=== PATIENT | female | born 1980 | race Two or more races ===

== ENCOUNTER 2017-03-26 07:42 | Emergency (ER) | payer OTHER ==
[2017-03-26 07:48] VITALS: BP 120/63; PULSE 88; TEMP 98.4; BMI 22.3
[2017-03-26] MEDS ORDERED: ALBUTEROL SO4 2.5/IPRATROPIUM 0.5 INH SOL 3 ML VIAL.NEB. NEB ONE ×2 (08:21→08:25)
[2017-03-26] MEDS ORDERED: predniSONE 20 MG TABLET (UD) PO ONE (08:21)
[2017-03-26] MEDS ORDERED: predniSONE 20 MG TABLET (UD) ONE (08:25)
--- NOTE | 2017-03-26 08:30 | PDOC ---
History of Present Illness - General Chief Complaint: Cold Symptoms Stated Complaint: COUGH, ABD PAIN Time Seen by Provider: 03/26/17 08:12 History Source: Patient Exam Limitations: No Limitations - History of Present Illness Initial Comments: 03/26/17 08:25 CC 2 weeks of cough and congestion Timing/Duration: reports: changing over time Severity: reports: mild Modifying Factors: improves with: activity Associated Symptoms: reports: cough, wheezing. denies: dizziness, fever/chills , headache, shortness of breath Past History - Past Medical History Allergies/Adverse Reactions: Allergies Allergy/AdvReac Type Severity Reaction Status Date / Time No Known Allergies Allergy Verified 03/26/17 07:44 Home Medications: Ambulatory Orders NK [No Known Home Medication] 03/26/17 Thyroid Disease: Yes (hypo) - Psycho/Social/Smoking Cessation Hx Anxiety: No Suicidal Ideation: No Smoking History: Current every day smoker Have you smoked in the past 12 months: Yes Number of Cigarettes Smoked Daily: 4 Information on smoking cessation initiated: Yes 'Breaking Loose' booklet given: 03/26/17 Hx Alcohol Use: No Drug/Substance Use Hx: No Substance Use Type: Alcohol Review of Systems - Review of Systems Constitutional: No: Chills, Fever, Malaise HEENTM: Yes: Nose Congestion. No: Ocular Prothesis, Hearing Loss Respiratory: Yes: Cough, Wheezing Cardiac (ROS): No: Symptoms Reported *Physical Exam - Vital Signs Last Vital Signs Temp Pulse Resp BP Pulse Ox 98.4 F 88 18 120/63 100 03/26/17 07:45 03/26/17 07:45 03/26/17 07:45 03/26/17 07:45 03/26/17 07:45 - Physical Exam General Appearance: No: Appropriately Dressed HEENT: positive: Nasal Congestion, Rhinorrhea. negative: TMs Normal Neck: positive: Supple. negative: Tender, Rigid Respiratory/Chest: positive: Lungs Clear, Normal Breath Sounds. negative: Accessory Muscle Use, Labored Respiration Cardiovascular: positive: Regular Rhythm, Regular Rate. negative: Murmur Medical Decision Making - Medical Decision Making 03/26/17 08:26 will start prednisone x 5 days for new wheezing; will give dual neb in ED for chest tightness; feeeling better *DC/Admit/Observation/Transfer Diagnosis at time of Disposition: Bronchitis, acute, with bronchospasm - Discharge Dispostion Disposition: HOME Condition at time of disposition: Stable Admit: No - Patient Instructions Additional Instructions: see local MD next week if no better; rest at home - Post Discharge Activity Work/School Note: Back to Work
== END 2017-03-26 08:59 | disposition home or self-care (01) ==
LOC: JERFT 07:42 → JER 07:42 → JERFT 08:59
PROC: 3E0F7GC Introduction of Other Therapeutic Substance into Respiratory Tract, Via Natural or Artificial Opening (ICD-10-PCS; principal; 2017-03-26)
DX: J20.9 Acute bronchitis, unspecified (principal); E03.9 Hypothyroidism, unspecified
CPT/HCPCS: 94640; 99281-25

== ENCOUNTER 2017-09-14 11:08 | Emergency (ER) | payer OTHER ==
[2017-09-14 11:21] VITALS: BMI 25.5
[2017-09-14] MEDS ORDERED: ASPIRIN 81 MG CHEWABLE TABLETS PO ONE (11:40)
[2017-09-14] MEDS ORDERED: morphine CARPU-JECT 2 MG/1 ML DISP.SYRIN IVPUSH ONE (11:40)
[2017-09-14] MEDS ORDERED: ASPIRIN 81 MG CHEWABLE TABLETS ONE (11:47)
[2017-09-14] MEDS ORDERED: morphine CARPU-JECT 8 MG/1 ML DISP.SYRIN ONE (11:47)
[2017-09-14 11:57] LABS: BASOPHIL 0.8 % (0-2.0); EOSINOPHIL 3.2 % (0-4.5); MCHC 34.7 g/dl (32.0-36.0); MEAN CELL VOLUME 92.3 fl (80-96); MEAN PLT VOLUME 7.6 fl (7.5-11.1); NEUTROPHILS 58.5 % (42.8-82.8); PLATELET COUNT 296 K/MM3 (134-434); RDW 12.8 % (11.6-15.6); WHITE BLOOD COUNT 4.4 K/mm3 (4.0-10.0)
[2017-09-14] MEDS ORDERED: ALBUTEROL SO4 2.5/IPRATROPIUM 0.5 INH SOL 3 ML VIAL.NEB. NEB ONE ×2 (12:25→12:34)
[2017-09-14 12:29] LABS: ANION GAP 6 (8-16); CALCIUM 8.3 mg/dL (8.5-10.1); CO2 28 mmol/L (21-32); CREATININE 0.6 mg/dL (0.55-1.02); GLUCOSE,RANDOM 78 mg/dL (74-106)
[2017-09-14 12:30] LABS: ALBUMIN 4.5 g/dl (3.4-5.0); ANION GAP 6 (8-16); BILIRUBIN,TOTAL 0.8 mg/dL (0.2-1.0); CO2 28 mmol/L (21-32); CREATININE 0.5 mg/dL (0.55-1.02); GLUCOSE,RANDOM 76 mg/dL (74-106); SGOT/AST 10 U/L (15-37); SGPT/ALT 24 U/L (12-78); TOT PROT 8.3 g/dl (6.4-8.2)
[2017-09-14 12:31] LABS: TROPONIN I < 0.02 ng/ml (0.00-0.05)
[2017-09-14 12:33] LABS: ALK PHOS 93 U/L (45-117); CPK 70 IU/L (26-192); TROPONIN I < 0.02 ng/ml (0.00-0.05)
--- NOTE | 2017-09-14 12:51 | PDOC ---
History of Present Illness - General Chief Complaint: Chest Pain Stated Complaint: CHEST PAIN Time Seen by Provider: 09/14/17 11:24 History Source: Patient Exam Limitations: No Limitations - History of Present Illness Initial Comments: 09/14/17 12:06 37-year-old female presents the ED with complaints of intermittent left sided chest pain which she describes a dull aching sensation worsened with deep breathing. Patient states the pain started while taking a shower this morning and has been constant for the past hour radiating to her left shoulder. Patient denies left arm weakness, paresthesia, swelling, or skin discoloration. Patient denies shortness of breath, palpitations, dizziness, nausea or back pain. Patient denies cardiac history and states has borderline hypothyroidism which she takes no medication for. Patient states last seen by her PCP about a year ago but is due for blood work next month for her thyroid which she does have done every 6 months. Patient states no recent injury, recent surgery, recent illness, recent travel, exogenous estrogen usage but states smokes cigarettes daily. Presenting Symptoms: Chest Pain Timing/Duration: reports: intermittent Severity/Quality: reports: moderate, dull Location: reports: substernal Chest Pain Radiation: reports: shoulders Prior Chest Pain/Cardiac Workup: reports: No prior chest pain Modifying Factors: improves with: breathing Aspirin Received prior to arrival (Core Measure): Yes: 81 mg x 2, provided by ED Associated Symptoms: Yes: Chest Pain/pressure Past History - Travel Traveled outside of the country in the last 30 days: No - Past Medical History Allergies/Adverse Reactions: Allergies Allergy/AdvReac Type Severity Reaction Status Date / Time No Known Allergies Allergy Verified 09/14/17 11:13 Home Medications: Ambulatory Orders NK [No Known Home Medication] 09/14/17 Thyroid Disease: Yes (hypo) - Suicide/Smoking/Psychosocial Hx Smoking History: Current every day smoker Have you smoked in the past 12 months: Yes Number of Cigarettes Smoked Daily: 4 Information on smoking cessation initiated: Yes 'Breaking Loose' booklet given: 09/14/17 Hx Alcohol Use: No Drug/Substance Use Hx: No Substance Use Type: Alcohol Patient Lives Alone: No Lives with/in: spouse/SO Cardiac Specific PMH - Complaint Specific PMHX GERD: No Review of Systems - Review of Systems Able to Perform ROS?: Yes Constitutional: No: Symptoms Reported HEENTM: No: Symptoms Reported Respiratory: No: Symptoms reported Cardiac (ROS): Yes: Chest Pain, Chest Tightness ABD/GI: No: Symptoms Reported : No: Symptoms Reported Musculoskeletal: No: Symptoms Reported Integumentary: No: Symptoms Reported Neurological: No: Symptoms reported Endocrine: No: Symptoms Reported Hematologic/Lymphatic: No: Symptoms Reported *Physical Exam - Vital Signs Last Vital Signs Temp Pulse Resp BP Pulse Ox 98.7 F 75 20 125/62 100 09/14/17 11:17 09/14/17 11:17 09/14/17 11:17 09/14/17 11:17 09/14/17 11:17 - Physical Exam General Appearance: Yes: Nourished, Appropriately Dressed. No: Apparent Distress HEENT: positive: Pharynx Normal. negative: Pale Conjunctivae Neck: positive: Normal Thyroid, Supple Respiratory/Chest: positive: Lungs Clear, Normal Breath Sounds. negative: Chest Tender, Respiratory Distress, Accessory Muscle Use Cardiovascular: positive: Regular Rhythm, Regular Rate. negative: Murmur Gastrointestinal/Abdominal: positive: Soft. negative: Tenderness Musculoskeletal: negative: CVA Tenderness Extremity: positive: Normal Capillary Refill. negative: Pedal Edema Integumentary: positive: Normal Color, Warm, Moist Neurologic: positive: Motor Strength 5/5 (ambulatory) Heart Score/ECG Review #2 General ECG Interpretation: Sinus Rhythm Compared to previous ECG there are: No significant change (rate 65) - ECG Intrepretation Rhythm: Regular Rhythm (Rate 88, NSR) ED Treatment Course - LABORATORY CBC & Chemistry Diagram: 09/14/17 11:44 09/14/17 11:44 - ADDITIONAL ORDERS Additional order review: Laboratory Results 09/14/17 09/14/17 09/14/17 16:00 12:27 11:44 D-Dimer Sodium 140 Potassium 3.6 Chloride 106 Carbon Dioxide 28 Anion Gap 6 L BUN 10 Creatinine 0.5 L Creat Clearance w eGFR > 60 Random Glucose 76 Calcium 8.0 L Total Bilirubin 0.8 AST 10 L ALT 24 Alkaline Phosphatase 93 Creatine Kinase 61 70 Troponin I < 0.02 < 0.02 Total Protein 8.3 H Albumin 4.5 Urine HCG, Qual Negative 09/14/17 09/14/17 11:44 11:31 D-Dimer 355 H Sodium 141 Potassium 3.6 Chloride 107 Carbon Dioxide 28 Anion Gap 6 L BUN 9 Creatinine 0.6 Creat Clearance w eGFR Random Glucose 78 Calcium 8.3 L Total Bilirubin AST ALT Alkaline Phosphatase Creatine Kinase Troponin I < 0.02 Total Protein Albumin Urine HCG, Qual 09/14/17 11:44 RBC 4.37 MCV 92.3 MCHC 34.7 RDW 12.8 MPV 7.6 Neutrophils % 58.5 Lymphocytes % 28.8 Monocytes % 8.7 Eosinophils % 3.2 Basophils % 0.8 - RADIOLOGY Radiology Studies Ordered: Category Date Time Status CHEST CTA [CT] Stat CT Scan 09/14/17 14:55 Completed DUPLEX VASCUL US-1 LEG [US] Stat Ultrasound 09/14/17 12:26 Completed - Medications Given in the ED: ED Medications Discontinued Medications Generic Name Dose Route Start Last Admin Trade Name Freq PRN Reason Stop Dose Admin Albuterol/Ipratropium 1 amp 09/14/17 12:25 09/14/17 13:26 Duoneb - NEB 09/14/17 12:26 1 amp ONCE ONE Administration Aspirin 162 mg 09/14/17 11:40 09/14/17 11:54 Asa - PO 09/14/17 11:41 162 mg ONCE ONE Administration Ketorolac Tromethamine 30 mg 09/14/17 16:39 09/14/17 16:49 Toradol Injection - IVPUSH 09/14/17 16:40 30 mg ONCE ONE Administration Morphine Sulfate 2 mg 09/14/17 11:40 09/14/17 11:54 Morphine Injection - IVPUSH 09/14/17 11:41 2 mg ONCE ONE Administration Medical Decision Making - Medical Decision Making 09/14/17 12:08 Patient here with sudden onset of left-sided chest dullness will taking a shower. Patient has no other complaints except for worsening pain with deep inspiration. Patient on exam has no reproducible pain to his lungs clear to auscultation. Patient concerning for ACS versus PE versus pulmonary etiology. Patient ordered for cardiac profile, CBC, comp, d-dimer, EKG, chest x-ray, morphine, aspirin and a DuoNeb. 09/14/17 13:01 Laboratory Tests 09/14/17 09/14/17 09/14/17 11:44 11:44 11:44 WBC 4.4 Hgb 14.0 Hct 40.4 Plt Count 296 D-Dimer 355 H Sodium 140 Potassium 3.6 Chloride 106 Carbon Dioxide 28 BUN 10 Creatinine 0.5 L Random Glucose 76 Calcium 8.0 L Total Bilirubin 0.8 AST 10 L ALT 24 Alkaline Phosphatase 93 Creatine Kinase 70 Troponin I < 0.02 Total Protein 8.3 H Urine HCG, Qual 09/14/17 12:27 WBC Hgb Hct Plt Count D-Dimer Sodium Potassium Chloride Carbon Dioxide BUN Creatinine Random Glucose Calcium Total Bilirubin AST ALT Alkaline Phosphatase Creatine Kinase Troponin I Total Protein Urine HCG, Qual Negative Patient ordered for chest CTA to rule out PE 09/14/17 14:11 There is no evidence of deep vein thrombosis in the left lower extremity. Patient states moderate relief of discomfort after receiving meds. 2nd set of trop ordered at 330p along with ekg 09/14/17 16:19 Chest CTA shows no gross evidence of pulmonary embolism within the main pulmonary artery and its proximal branches bilateral. Subfloor cystic changes/ bullae in the upper lobes likely on the basis of mild emphysematous changes. Focal pleural-based density/infiltrate in the right middle lobe, laterally. Also minimal bibasal atelectasis changes without gross evidence of infiltrates. Patient awaiting second troponin and EKG. 09/14/17 17:20 Laboratory Tests 09/14/17 16:00 Creatine Kinase 61 Troponin I < 0.02 patient states feeling better. Patient to be discharged home. patient to follow- up with primary care physician and will be given copy of CTA *DC/Admit/Observation/Transfer Diagnosis at time of Disposition: Chest pain Qualifiers: Chest pain type: unspecified Qualified Code(s): R07.9 - Chest pain, unspecified ; R07.9 - Chest pain, unspecified - Discharge Dispostion Disposition: HOME Condition at time of disposition: Improved - Referrals Referrals: Dougie Felix MD [Primary Care Provider] - - Patient Instructions Printed Discharge Instructions: DI for Chest Pain Additional Instructions: Please take Tylenol for any discomfort. If symptoms worsen please return to the ED. Otherwise follow up with her primary care physician Dr. Felix and take copy of the CTA with you.
[2017-09-14] MEDS ORDERED: KETOROLAC TROMETHAMINE 30 MG/1 ML VIAL IVPUSH ONE (16:39)
[2017-09-14] MEDS ORDERED: KETOROLAC TROMETHAMINE 30 MG/1 ML VIAL ONE (16:41)
[2017-09-14 16:47] LABS: CPK 61 IU/L (26-192)
[2017-09-14 16:48] LABS: TROPONIN I < 0.02 ng/ml (0.00-0.05)
[2017-09-14 17:23] VITALS: TEMP 98.6
[2017-09-14 17:53] VITALS: BP 101/64; PULSE 66
--- NOTE | 2017-09-15 09:04 | EKG ---
Test Reason : Blood Pressure : / mmHG Vent. Rate : 065 BPM Atrial Rate : 065 BPM P-R Int : 166 ms QRS Dur : 084 ms QT Int : 408 ms P-R-T Axes : 049 024 026 degrees QTc Int : 424 ms NORMAL SINUS RHYTHM NORMAL ECG WHEN COMPARED WITH ECG OF 14-SEP-2017 11:20, NO SIGNIFICANT CHANGE WAS FOUND Confirmed by MARIA G SHI MD ([id number]) on 09/15/2017 9:04:13 AM Referred By: Confirmed By:MARIA G SHI MD
--- NOTE | 2017-09-15 09:06 | EKG ---
Test Reason : Blood Pressure : / mmHG Vent. Rate : 088 BPM Atrial Rate : 088 BPM P-R Int : 152 ms QRS Dur : 076 ms QT Int : 364 ms P-R-T Axes : 058 022 031 degrees QTc Int : 440 ms POOR DATA QUALITY, INTERPRETATION MAY BE ADVERSELY AFFECTED NORMAL SINUS RHYTHM NORMAL ECG NO PREVIOUS ECGS AVAILABLE Confirmed by MARIA G SHI MD ([id number]) on 09/15/2017 9:06:29 AM Referred By: Confirmed By:MARIA G SHI MD
== END 2017-09-14 17:53 | disposition home or self-care (01) ==
LOC: JER 11:08
PROC: 3E0F7GC Introduction of Other Therapeutic Substance into Respiratory Tract, Via Natural or Artificial Opening (ICD-10-PCS; principal; 2017-09-14)
PROC: 3E0333Z Introduction of Anti-inflammatory into Peripheral Vein, Percutaneous Approach (ICD-10-PCS; 2017-09-14)
PROC: 3E033NZ Introduction of Analgesics, Hypnotics, Sedatives into Peripheral Vein, Percutaneous Approach (ICD-10-PCS; 2017-09-14)
DX: R07.9 Chest pain, unspecified (principal)
CPT/HCPCS: 36415; 71275-TC; 80048; 80053; 82550; 84484; 84703; 85025; 85379; 93005; 93010; 93971-TC; 94640; 96374; 96375; 99284-25

== ENCOUNTER 2019-01-14 18:33 | Emergency (ER) | payer OTHER ==
[2019-01-14 18:45] VITALS: BP 125/66; PULSE 97; TEMP 98.2; BMI 25.7
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
[2019-01-14] MEDS ORDERED: KETOROLAC TROMETHAMINE 60 MG/2 ML VIAL IM ONE (19:28)
[2019-01-14] MEDS ORDERED: KETOROLAC TROMETHAMINE 60 MG/2 ML VIAL ONE (19:29)
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
== END 2019-01-14 19:53 | disposition home or self-care (01) ==
LOC: JERFT 18:33
PROC: 3E0233Z Introduction of Anti-inflammatory into Muscle, Percutaneous Approach (ICD-10-PCS; principal; 2019-01-14)
DX: M62.830 Muscle spasm of back (principal); M25.562 Pain in left knee; V47.9XXA Unspecified car occupant injured in collision with fixed or stationary object in traffic accident, initial encounter; Y93.89 Activity, other specified; Y92.89 Other specified places as the place of occurrence of the external cause
CPT/HCPCS: 73562-TC-LT-FY; 96372; 99281-25

== ENCOUNTER 2023-09-10 18:10 | Emergency (ER) | payer OTHER ==
[2023-09-10 18:16] VITALS: BP 114/73; PULSE 82; RESP 18; TEMP 97.8; BMI 23.1
[2023-09-10] MEDS ORDERED: DEXTROMETHORPHAN/PROMETHAZINE 15 MG/6.25 MG/5 ML SYRUP PO ONE (20:23)
== END 2023-09-10 21:34 | disposition home or self-care (01) ==
LOC: JERFT 18:10
DX: R05.9 Cough, unspecified (principal); J02.9 Acute pharyngitis, unspecified; R07.89 Other chest pain; R09.81 Nasal congestion; Z20.822 Contact with and (suspected) exposure to COVID-19
CPT/HCPCS: 0241U-QW; 71046-TC-FY; 99284-25

== ENCOUNTER 2024-12-04 13:14 | Emergency (ER) | payer OTHER ==
[2024-12-04 13:24] VITALS: BP 128/85; PULSE 94; RESP 20; TEMP 97.9; BMI 26.6
[2024-12-04] MEDS: ALBUTEROL SO4 2.5/IPRATROPIUM 0.5 INH SOL 3 ML VIAL.NEB. NEB SCH (13:45)
[2024-12-04] MEDS: LIDOCAINE 5% TOPICAL PATCH TP ONE (13:49)
[2024-12-04] MEDS: ACETAMINOPHEN 500 MG TABLET (FP) PO ONE (13:49)
[2024-12-04] MEDS ORDERED: ACETAMINOPHEN 500 MG TABLET (FP) ONE (14:41)
[2024-12-04] MEDS ORDERED: ALBUTEROL SO4 2.5/IPRATROPIUM 0.5 INH SOL 3 ML VIAL.NEB. NEB ONE (14:41)
[2024-12-04] MEDS ORDERED: LIDOCAINE 5% TOPICAL PATCH ONE (14:47)
[2024-12-04] MEDS ORDERED: AZITHROMYCIN 250 MG TABLET ONE (16:06)
[2024-12-04] MEDS: AZITHROMYCIN 250 MG TABLET PO ONE (16:20)
[2024-12-04] MEDS ORDERED: LIDOCAINE PATCH REMOVAL MC SCH (22:00)
== END 2024-12-04 16:55 | disposition home or self-care (01) ==
LOC: JER 13:14
PROC: 3E0F7GC Introduction of Other Therapeutic Substance into Respiratory Tract, Via Natural or Artificial Opening (ICD-10-PCS; principal; 2024-12-04)
DX: R05.9 Cough, unspecified (principal); R07.89 Other chest pain; M54.6 Pain in thoracic spine; M25.512 Pain in left shoulder; Z20.822 Contact with and (suspected) exposure to COVID-19
CPT/HCPCS: 0241U-QW; 71046-TC-FY; 99284-25